=== PATIENT | female | born 1955 | race Caucasian/White ===

== ENCOUNTER 2017-12-10 06:44 | Emergency (ER) | payer MEDICAID ==
[2017-12-10] MEDS ORDERED: Ondansetron 4 MG/2 ML SDV IVPUSH ONE ×2 (07:16→09:07)
[2017-12-10] MEDS ORDERED: Sodium Chloride 0.9% 1,000 ML IV ONE ×2 (07:16→09:06)
[2017-12-10] MEDS ORDERED: LORazepam 2 MG/ML SDV IVPUSH ONE (07:16)
[2017-12-10] MEDS ORDERED: Sodium Chloride 0.9% 10 ML Syringe FLUSH PRN ×2 (07:17→08:50)
--- NOTE | 2017-12-10 07:18 | EDM.PDOC ---
ED HPI GENERAL MEDICAL PROBLEM - General Chief Complaint: General Stated Complaint: SWEATING AND NAUSEA Time Seen by Provider: 12/10/17 07:08 Source of Information: Reports: Patient History Limitations: Reports: No Limitations - History of Present Illness INITIAL COMMENTS - FREE TEXT/NARRATIVE: 52 y/o F with vomiting. Started around 3AM. Had many episodes of vomiting overnight. Upon arrival, had an episode of vomiting with some blood in it. Prior episodes of vomiting did not contain blood. Had 1 episode of diarrhea this morning, nonbloody/no melena. Tyler fine last night. No clear provoking factor. Also has diffuse abdominal discomfort. States it is "discomfort" not pain. No provoking/relieving factors. Currently unable to tolerate PO fluids. No chest pain/SOB. No urinary symptoms. No ill contacts. No known exposure to contaminated food or water. Abdominal Pain Score (Numeric/FACES): 1 - Related Data Allergies Allergy/AdvReac Type Severity Reaction Status Date / Time No Known Allergies Allergy Verified 12/10/17 07:01 Home Meds: Home Meds Lisinopril 10 mg PO DAILY 05/11/16 [History] Ondansetron [Zofran ODT] 4 mg PO Q6H PRN #20 tab.dis 05/11/16 [Rx] Ranitidine [Zantac] 150 mg PO DAILY 05/11/16 [History] ALPRAZolam [Xanax] 0.5 mg PO DAILY 12/10/17 [History] Ondansetron [Ondansetron ODT] 8 mg PO Q6HR PRN #20 tab.rapdis 12/10/17 [Rx] Pantoprazole [ProTONIX] 40 mg PO DAILY #30 tab.cr 12/10/17 [Rx] Past Medical History Cardiovascular History: Reports: Hypertension Gastrointestinal History: Reports: GERD Musculoskeletal History: Reports: Osteoarthritis Psychiatric History: Reports: Anxiety - Past Surgical History HEENT Surgical History: Reports: Oral Surgery GI Surgical History: Reports: Cholecystectomy, Hernia Repair/Other Female Surgical History: Reports: D&C, Tubal Ligation Musculoskeletal Surgical History: Reports: Shoulder Surgery Social & Family History - Family History Family Medical History: Noncontributory - Tobacco Use Smoking Status *Q: Never Smoker Years of Tobacco use: 40 Packs/Tins Daily: 0.1 Second Hand Smoke Exposure: No - Caffeine Use Caffeine Use: Reports: None - Alcohol Use Days Per Week of Alcohol Use: 0 - Recreational Drug Use Recreational Drug Use: Yes Drug Use in Last 12 Months: Yes Recreational Drug Type: Reports: Marijuana/Hashish Recreational Drug Use Frequency: Weekly - Living Situation & Occupation Living situation: Reports: Single, with Significant Other, with Family Occupation: Employed ED ROS GENERAL - Review of Systems Review Of Systems: See Below Constitutional: Reports: Malaise, Weakness, Fatigue. Denies: Fever HEENT: Reports: No Symptoms Respiratory: Denies: Shortness of Breath Cardiovascular: Denies: Chest Pain Endocrine: Reports: No Symptoms GI/Abdominal: Reports: Abdominal Pain, Nausea, Vomiting : Reports: No Symptoms. Denies: Dysuria Musculoskeletal: Reports: No Symptoms Skin: Reports: No Symptoms Neurological: Reports: No Symptoms Psychiatric: Reports: No Symptoms Hematologic/Lymphatic: Reports: No Symptoms ED EXAM, GENERAL - Physical Exam Exam: See Below Exam Limited By: No Limitations General Appearance: Alert, Mild Distress Eye Exam: Bilateral Eye: Normal Inspection Ears: Normal External Exam Nose: Normal Inspection Throat/Mouth: Normal Inspection, Normal Oropharynx, Normal Voice Head: Atraumatic, Normocephalic Neck: Normal Inspection, Supple Respiratory/Chest: No Respiratory Distress, Lungs Clear, Normal Breath Sounds, Chest Non-Tender Cardiovascular: Normal Peripheral Pulses, Regular Rate, Rhythm, No Edema, No Murmur GI/Abdominal: Soft, No Distention, Guarding, Tender (mild, diffuse) Back Exam: Normal Inspection Extremities: Normal Inspection Neurological: Alert, Oriented, Normal Cognition, No Motor/Sensory Deficits Psychiatric: Normal Affect, Normal Mood Skin Exam: Warm, Dry, Intact, Normal Color, No Rash Course - Vital Signs Last Recorded V/S: Last Vital Signs Temp 36.6 C 12/10/17 11:52 Pulse 113 H 12/10/17 11:52 Resp 15 12/10/17 07:46 BP 153/88 H 12/10/17 11:52 Pulse Ox 98 12/10/17 11:52 - Orders/Labs/Meds Orders: Active Orders 24 hr Category Date Time Status EKG 12 Lead [EKG Documentation Completion] [RC] STAT Care 12/10/17 07:17 Active Peripheral IV Care [RC] . DIRECTED Care 12/10/17 07:17 Active Abdomen Series w Chest 1V [CR] Stat Exams 12/10/17 07:20 Taken UA W/MICROSCOPIC [URIN] Stat Lab 12/10/17 09:21 Ordered Peripheral IV Insertion Adult [OM.PC] Routine Oth 12/10/17 07:17 Ordered Labs: Laboratory Tests 12/10/17 12/10/17 12/10/17 Range/Units 06:57 06:57 09:21 WBC 15.49 H (3.98-10.04) K/mm3 RBC 5.33 H (3.98-5.22) M/mm3 Hgb 15.0 (11.2-15.7) gm/L Hct 43.8 (34.1-44.9) % MCV 82.2 (79.4-94.8) fl MCH 28.1 (25.6-32.2) pg MCHC 34.2 (32.2-35.5) g/dl RDW Std Deviation 39.0 (36.4-46.3) fL Plt Count 430 H (182-369) K/mm3 MPV 8.9 L (9.4-12.3) fl Neut % (Auto) 78.0 H (34.0-71.1) % Lymph % (Auto) 13.9 L (19.3-51.7) % Eaton % (Auto) 6.4 (4.7-12.5) % Eos % (Auto) 1.0 (0.7-5.8) Baso % (Auto) 0.4 (0.1-1.2) % Neut # (Auto) 12.09 H (1.56-6.13) K/mm3 Lymph # (Auto) 2.15 (1.18-3.74) K/mm3 [place]aton # (Auto) 0.99 H (0.24-0.36) K/mm3 Eos # (Auto) 0.16 (0.04-0.36) K/mm3 Baso # (Auto) 0.06 (0.01-0.08) K/mm3 Sodium 140 (136-145) mEq/L Potassium 3.5 (3.5-5.1) mEq/L Chloride 104 (98-107) mEq/L Carbon Dioxide 22 (21-32) mEq/L Anion Gap 17.5 H (5-15) BUN 10 (7-18) mg/dL Creatinine 0.9 (0.55-1.02) mg/dL Est Cr Clr Drug Dosing 48.91 mL/min Estimated GFR (MDRD) > 60 (>60) mL/min BUN/Creatinine Ratio 11.1 L (14-18) Glucose 186 H (80-115) mg/dL Calcium 9.7 (8.5-10.1) mg/dL Magnesium 2.2 (1.8-2.4) mg/dl Total Bilirubin 0.7 (0.2-1.0) mg/dL AST 11 L (15-37) U/L ALT 23 (14-59) U/L Alkaline Phosphatase 66 (46-116) U/L Troponin I < 0.017 (0.00-0.056) ng/mL Total Protein 8.3 H (6.4-8.2) g/dl Albumin 4.4 (3.4-5.0) g/dl Globulin 3.9 gm/dL Albumin/Globulin Ratio 1.1 (1-2) Lipase 120 (73-393) U/L Urine Color Yellow (Yellow) Urine Appearance Clear (Clear) Urine pH 7.0 (5.0-8.0) Ur Specific Rock 1.025 (1.005-1.030) Urine Protein Negative (Negative) Urine Glucose (UA) Trace H (Negative) Urine Ketones 1+ H (Negative) Urine Occult Blood 2+ H (Negative) Urine Nitrite Negative (Negative) Urine Bilirubin Negative (Negative) Urine Urobilinogen 0.2 (0.2-1.0) Ur Leukocyte Esterase Negative (Negative) Urine RBC 5-10 H (0-5) /hpf Urine WBC 0-5 (0-5) /hpf Ur Epithelial Cells 0-5 (0-5) /hpf Urine Bacteria Few (FEW) /hpf Hyaline Casts 0-5 (0-5) /lpf Urine Mucus Few (FEW) /hpf Meds: Medications Discontinued Medications Generic Name Dose Route Start Last Admin Trade Name Freq PRN Reason Stop Dose Admin Diatrizoate Meglum/Diatrizoate Sod 120 ml 12/10/17 08:50 12/10/17 09:27 Gastrografin 37% PO 12/10/17 08:51 90 ml ONETIME ONE Administration Sodium Chloride 1,000 mls @ 1,000 mls/hr 12/10/17 07:16 12/10/17 07:31 Normal Saline IV 12/10/17 08:15 1,000 mls/hr ONETIME ONE Administration Sodium Chloride Confirm 12/10/17 09:01 12/10/17 09:11 Normal Saline Administered 12/10/17 09:02 Not Given Dose 1,000 mls @ as directed .ROUTE .STK-MED ONE Sodium Chloride 1,000 mls @ 999 mls/hr 12/10/17 09:06 12/10/17 09:10 Normal Saline IV 12/10/17 10:06 999 mls/hr ONETIME ONE Administration Iopamidol 100 ml 12/10/17 08:50 12/10/17 09:27 Isovue-300 (61%) IVPUSH 12/10/17 08:51 100 ml ONETIME ONE Administration Lorazepam 1 mg 12/10/17 07:16 12/10/17 07:27 Ativan IVPUSH 12/10/17 07:17 1 mg ONETIME ONE Administration Metoclopramide HCl 10 mg 12/10/17 09:15 12/10/17 09:23 Reglan IVPUSH 12/10/17 09:16 10 mg ONETIME ONE Administration Ondansetron HCl 4 mg 12/10/17 07:16 12/10/17 07:28 Zofran IVPUSH 12/10/17 07:17 4 mg ONETIME ONE Administration Ondansetron HCl 4 mg 12/10/17 09:07 12/10/17 09:08 Zofran IVPUSH 12/10/17 09:08 4 mg ONETIME ONE Administration Ondansetron HCl Confirm 12/10/17 09:08 12/10/17 09:12 Zofran Administered 12/10/17 09:09 Not Given Dose 4 mg .ROUTE .STK-MED ONE Pantoprazole Sodium 40 mg 12/10/17 07:36 12/10/17 08:18 Protonix Iv IVPUSH 12/10/17 07:37 40 mg ONETIME ONE Administration Sodium Chloride 10 ml 12/10/17 07:17 12/10/17 07:27 Saline Flush FLUSH 10 ml ASDIRECTED PRN Administration Keep Vein Open Sodium Chloride 10 ml 12/10/17 08:50 12/10/17 09:27 Saline Flush FLUSH 10 ml ONETIME PRN Administration IV FLUSH - Re-Assessments/Exams Free Text/Narrative Re-Assessment/Exam: 12/10/17 12:46 Vomited after oral contrast, no blood in the vomit. She did report feeling better after zofran, reglan, and IV fluids. She did have small amount of blood in vomit upon arrival, which did not continue with repeated episodes in the ED. She may have a gastric ulcer or esophageal irrigation/minor tearing related to vomiting. She doesn't take blood thinners. She has a normal HCT. Labs otherwise unremarkable. She is feeling better. I offered admission for ongoing symptom control and possible EGD if needed. She much prefers to be discharged. Given this preference, will dc home with strict return precautions for any further hematemesis, worsening abdominal pain, or other concern. CT a/p showed a 6.3 cm left pelvic cyst, otherwise unremarkable. I discussed this finding with the patient and suggested she f/u with PCP to arrange for the ultrasound. Discussed ED return precautions. Will rx zofran and pantoprazole. Departure - Departure Time of Disposition: 11:34 Disposition: Home, Self-Care 01 Clinical Impression: Vomiting Qualifiers: Vomiting type: unspecified Vomiting Intractability: non-intractable Nausea presence: with nausea Qualified Code(s): R11.2 - Nausea with vomiting, unspecified - Discharge Information Prescriptions: Ondansetron [Ondansetron ODT] 8 mg PO Q6HR PRN #20 tab.rapdis PRN Reason: Nausea Pantoprazole [ProTONIX] 40 mg PO DAILY #30 tab.cr Instructions: Nausea and Vomiting, Adult, [id number] Referrals: Maria Elena Hunt MD [Primary Care Provider] - Forms: ED Department Discharge Additional Instructions: 1. Take ondansetron as prescribed for vomiting 2. Take pantoprazole daily as prescribed to reduce stomach acid 3. Clear liquid diet today. You may advance diet to include bland foods once you feel better. 4. Follow up with your primary doctor as soon as possible for further care, including: - referral for upper endoscopy to check your esophagus and stomach - referral for ultrasound of your left pelvis. Your CT scan today shows a 6.3 cm cyst in your L pelvis which our radiologist suggests should be followed up with an ultrasound. 5. Return to the Emergency Department if you have worsening nausea, vomiting, abdominal pain, or other concerning symptoms. - My Orders Last 24 Hours: My Active Orders 12/10/17 07:17 EKG 12 Lead [EKG Documentation Completion] [RC] STAT Peripheral IV Care [RC] . DIRECTED Peripheral IV Insertion Adult [OM.PC] Routine 12/10/17 07:20 Abdomen Series w Chest 1V [CR] Stat 12/10/17 09:21 UA W/MICROSCOPIC [URIN] Stat - Assessment/Plan Last 24 Hours: My Active Orders 12/10/17 07:17 EKG 12 Lead [EKG Documentation Completion] [RC] STAT Peripheral IV Care [RC] . DIRECTED Peripheral IV Insertion Adult [OM.PC] Routine 12/10/17 07:20 Abdomen Series w Chest 1V [CR] Stat 12/10/17 09:21 UA W/MICROSCOPIC [URIN] Stat
[2017-12-10] MEDS ORDERED: Pantoprazole 40 MG Vial IVPUSH ONE (07:36)
[2017-12-10] MEDS ORDERED: Iopamidol 612 MG/ML 100 ML Bottle IVPUSH ONE (08:50)
[2017-12-10] MEDS ORDERED: Diatrizoate Meglumine/Diatrizoate Sodium 37% 120 ML Bottle PO ONE (08:50)
[2017-12-10] MEDS ORDERED: Sodium Chloride 0.9% 1,000 ML ONE (09:01)
[2017-12-10] MEDS ORDERED: Ondansetron 4 MG/2 ML SDV ONE (09:08)
[2017-12-10] MEDS ORDERED: Metoclopramide 10 MG/2 ML SDV IVPUSH ONE (09:15)
--- NOTE | 2017-12-10 10:48 | CT ---
CT abdomen and pelvis Technique: Multiple axial sections were obtained from above the dome of the diaphragm inferiorly through the pubic symphysis. Intravenous contrast was utilized. Some oral contrast is also seen. Delayed images were obtained through the bladder. Comparison: Prior abdominal and pelvic CT study of 1512. Findings: Visualized lung bases shows nothing acute. Small low density abnormality is noted within the right lobe of the liver which is nonspecific regarding Hounsfield unit measurements and measures 6 mm in size and statistically is most likely a small cyst. Low density is noted next to the ligamentum teres fissure which is felt compatible with an incidental area of fat. Liver is otherwise unremarkable. Spleen appears within normal limits. Adrenal glands on both sides appears nodular which is similar to prior CT exam. Surgical clips seen from prior cholecystectomy. Pancreas is within normal limits. Fatty containing lesion is seen within the left kidney which is felt to be benign and measures about 1.0 cm. Small abnormality noted within the right kidney which is also nonspecific regarding Hounsfield unit measurements and measures 3.5 mm which statistically is likely incidental. Aorta shows no aneurysmal dilatation with no retroperitoneal adenopathy. Appendix felt to be visualized and is normal. Diverticuli noted within the transverse, descending and sigmoid colon without inflammatory change of diverticulitis. Cystic lesion is seen within the left pelvis measuring about 6.3 cm in size which is an interval change from prior CT exam. Calcified uterine fibroid is identified within the uterus measuring 4.4 cm in size which has increased from prior study at which time it measured 4.2 cm. No additional pelvic abnormality is seen. Delayed images shows contrast within the distal ureters and bladder. Bone window settings were reviewed showing scattered degenerative change within the spine. Impression: 1. 6.3 cm cyst within the left side of the pelvis. Pelvic ultrasound recommended to further evaluate. 2. Slight increasing size of calcified uterine fibroid which is incidental. 3. Other incidental findings as noted above. Diagnostic code #9
[2017-12-10 12:00] VITALS: BP 153/88
--- NOTE | 2017-12-11 09:37 | CR ---
Abdominal series: Supine and upright views of the abdomen were obtained as well as frontal view of the chest. Comparison: Prior abdominal series of 05/11/16. Heart size and mediastinum are normal. Lungs are clear. Mild scoliosis is present. Calcified uterine fibroid is seen within the pelvis. Surgical clips are seen from prior cholecystectomy. No free air is seen. Bowel gas pattern is within normal limits. Impression: 1. Incidental findings. Nothing acute is seen. Diagnostic code #2
== END 2017-12-10 11:52 | disposition home or self-care (01) ==
LOC: JD.ED 06:44
DX: R11.2 Nausea with vomiting, unspecified (principal); I10 Essential (primary) hypertension; F41.9 Anxiety disorder, unspecified; K21.9 Gastro-esophageal reflux disease without esophagitis; M19.90 Unspecified osteoarthritis, unspecified site; Z79.899 Other long term (current) drug therapy
CPT/HCPCS: 36415; 74022; 74177; 80053; 81001; 83690; 83735; 84484; 85025; 93005; 96361; 96374; 96375; 96376; 99285; C9113; J2060; J2405; J2765; J7040; J7050; Q9963; Q9967; 99284

== ENCOUNTER 2019-04-15 02:38 | Emergency (ER) | payer MEDICAID ==
[2019-04-15 02:47] VITALS: BP 189/114; PULSE 81
--- NOTE | 2019-04-15 02:56 | EDM.PDOC ---
ED HPI GENERAL MEDICAL PROBLEM - General Chief Complaint: Cardiovascular Problem Stated Complaint: HIGH BP/HEADACHE Time Seen by Provider: 04/15/19 02:49 - History of Present Illness INITIAL COMMENTS - FREE TEXT/NARRATIVE: 63-year-old female presents emergency room with headache and elevated blood pressure. Patient has had ongoing headache for the last several days. She's been followed up closely this week with elevated blood pressure in the clinic. In the past she has taken what sounds like lisinopril 10 HCTZ, however stopped it 6 months ago due to low blood pressure. She has developed a headache over last several days. And just prior to arrival here developed some nausea and vomiting. She has not had any chest pain or chest pressure no breathing difficulties or shortness of breath. She has not noticed any change in vision or other neurologic symptoms. Patient does have a history of migraine headaches and she states back to full out like this and go on for several days have some associated nausea and vomiting. Headache Pain Score (Numeric/FACES): 8 - Related Data Allergies Allergy/AdvReac Type Severity Reaction Status Date / Time No Known Allergies Allergy Verified 04/15/19 02:45 Home Meds: Home Meds Lisinopril 10 mg PO DAILY 05/11/16 [History] Ondansetron [Zofran ODT] 4 mg PO Q6H PRN #20 tab.dis 05/11/16 [Rx] Ranitidine [Zantac] 150 mg PO DAILY 05/11/16 [History] ALPRAZolam [Xanax] 0.5 mg PO DAILY 12/10/17 [History] Ondansetron [Ondansetron ODT] 8 mg PO Q6HR PRN #20 tab.rapdis 12/10/17 [Rx] Pantoprazole [ProTONIX] 40 mg PO DAILY #30 tab.cr 12/10/17 [Rx] Lisinopril [Prinivil] 10 mg PO Q24H #30 tablet 04/15/19 [Rx] Past Medical History Cardiovascular History: Reports: Hypertension Gastrointestinal History: Reports: GERD Musculoskeletal History: Reports: Osteoarthritis Psychiatric History: Reports: Anxiety - Past Surgical History HEENT Surgical History: Reports: Oral Surgery GI Surgical History: Reports: Cholecystectomy, Hernia Repair/Other Female Surgical History: Reports: D&C, Tubal Ligation Musculoskeletal Surgical History: Reports: Shoulder Surgery Social & Family History - Family History Family Medical History: Noncontributory - Caffeine Use Caffeine Use: Reports: None - Living Situation & Occupation Living situation: Reports: Single, with Significant Other, with Family Occupation: Employed ED ROS GENERAL - Review of Systems Review Of Systems: See Below Constitutional: Reports: No Symptoms HEENT: Reports: No Symptoms Respiratory: Reports: No Symptoms Cardiovascular: Reports: No Symptoms GI/Abdominal: Reports: Nausea, Vomiting. Denies: Abdominal Pain, Constipation, Diarrhea : Reports: No Symptoms Musculoskeletal: Reports: No Symptoms Skin: Reports: No Symptoms Neurological: Reports: Headache Psychiatric: Reports: No Symptoms Hematologic/Lymphatic: Reports: No Symptoms Immunologic: Reports: No Symptoms ED EXAM, GENERAL - Physical Exam Exam: See Below Exam Limited By: No Limitations General Appearance: Mild Distress (From the nausea and vomiting) Eye Exam: Bilateral Eye: Normal Fundi, Normal Inspection, PERRL Ears: Normal External Exam, Normal Canal, Hearing Grossly Normal, Normal TMs Nose: Normal Inspection, Normal Mucosa, No Blood Throat/Mouth: Normal Lips, Normal Oropharynx, Normal Voice, No Airway Compromise Head: Atraumatic, Normocephalic Neck: Normal Inspection, Supple, Non-Tender. No: Tender Lateral, Tender Midline Respiratory/Chest: No Respiratory Distress, Lungs Clear, Normal Breath Sounds Cardiovascular: Regular Rate, Rhythm, No Edema, No Murmur GI/Abdominal: Normal Bowel Sounds, Soft, Non-Tender Back Exam: Normal Inspection. No: CVA Tenderness (L), CVA Tenderness (R), Vertebral Tenderness Extremities: Normal Inspection, Non-Tender, No Pedal Edema Neurological: Alert, Oriented, CN II-XII Intact, Normal Cognition, No Motor/ Sensory Deficits Skin Exam: Other (She was initially diaphoretic upon arrival but this has improved) EKG INTERPRETATION EKG Date: 04/15/19 Rhythm: NSR Green[place]: Normal P-Wave: Present QRS: Normal ST-T: Normal QT: Normal Comparison: No Change EKG Interpretation Comments: Normal Course - Vital Signs Last Recorded V/S: Last Vital Signs Temp 35.8 C 04/15/19 02:46 Pulse 81 04/15/19 02:46 Resp 18 04/15/19 02:46 BP 189/114 H 04/15/19 02:46 Pulse Ox 98 04/15/19 02:46 - Orders/Labs/Meds Orders: Active Orders 24 hr Category Date Time Status EKG Documentation Completion [RC] STAT Care 04/15/19 02:54 Active Chest 1V Frontal [CR] Stat Exams 04/15/19 03:01 Taken Head wo Cont [CT] Stat Exams 04/15/19 03:26 Taken Labs: Laboratory Tests 04/15/19 04/15/19 04/15/19 Range/Units 03:02 03:02 03:02 WBC 8.41 (3.98-10.04) K/mm3 RBC 4.98 (3.98-5.22) M/mm3 Hgb 14.1 (11.2-15.7) gm/L Hct 40.9 (34.1-44.9) % MCV 82.1 (79.4-94.8) fl MCH 28.3 (25.6-32.2) pg MCHC 34.5 (32.2-35.5) g/dl RDW Std Deviation 39.4 (36.4-46.3) fL Plt Count 348 (182-369) K/mm3 MPV 8.2 L (9.4-12.3) fl Neutrophils % (Manual) 55 (40-60) % Band Neutrophils % 0 (0-10) % Lymphocytes % (Manual) 40 (20-40) % Atypical Lymphs % 0 % Monocytes % (Manual) 4 (2-10) % Eosinophils % (Manual) 1 (0.7-5.8) % Basophils % (Manual) 0 L (0.1-1.2) Platelet Estimate Adequate Plt Morphology Comment Normal RBC Morph Comment Normal PT 10.6 (9.7-12.0) SECONDS INR 0.97 APTT 23 (22-31) SECONDS Sodium 140 (136-145) mEq/L Potassium 3.4 L (3.5-5.1) mEq/L Chloride 104 (98-107) mEq/L Carbon Dioxide 22 (21-32) mEq/L Anion Gap 17.4 H (5-15) BUN 14 (7-18) mg/dL Creatinine 0.9 (0.55-1.02) mg/dL Est Cr Clr Drug Dosing 48.28 mL/min Estimated GFR (MDRD) > 60 (>60) mL/min BUN/Creatinine Ratio 15.6 (14-18) Glucose 174 H (80-115) mg/dL Calcium 9.9 (8.5-10.1) mg/dL Total Bilirubin 0.8 (0.2-1.0) mg/dL AST 14 L (15-37) U/L ALT 21 (14-59) U/L Alkaline Phosphatase 63 (46-116) U/L Troponin I < 0.017 (0.00-0.056) ng/mL Total Protein 8.0 (6.4-8.2) g/dl Albumin 4.6 (3.4-5.0) g/dl Globulin 3.4 gm/dL Albumin/Globulin Ratio 1.4 (1-2) Meds: Medications Discontinued Medications Generic Name Dose Route Start Last Admin Trade Name Freq PRN Reason Stop Dose Admin Diphenhydramine HCl 25 mg 04/15/19 03:50 04/15/19 04:02 Benadryl IVPUSH 04/15/19 03:51 25 mg ONETIME ONE Administration Hydralazine HCl 10 mg 04/15/19 03:50 04/15/19 04:02 Apresoline IVPUSH 04/15/19 03:51 10 mg ONETIME ONE Administration Lorazepam 0.5 mg 04/15/19 06:04 04/15/19 06:09 Ativan IVPUSH 04/15/19 06:05 0.5 mg ONETIME ONE Administration Metoclopramide HCl 5 mg 04/15/19 05:08 04/15/19 05:14 Reglan IVPUSH 04/15/19 05:09 5 mg ONETIME ONE Administration Ondansetron HCl 4 mg 04/15/19 03:01 04/15/19 03:07 Zofran IVPUSH 04/15/19 03:02 4 mg ONETIME ONE Administration Ondansetron HCl 4 mg 04/15/19 03:25 04/15/19 03:32 Zofran IVPUSH 04/15/19 03:26 4 mg ONETIME ONE Administration - Re-Assessments/Exams Free Text/Narrative Re-Assessment/Exam: 04/15/19 03:52 Patient has not had much luck with Zofran 4 mg IV 2 she looks better and seems to be vomiting less however she's upset that she is still nauseated. With her blood pressure will go ahead and give her 10 mg of hydralazine. With her history of migraines give 25 mg of Benadryl see if it helps head CT has been done per my interpretation shows no acute changes 04/15/19 04:31 Blood pressures responded to the hydralazine 179/87 patient still has some problems with nausea and vomiting offered to give her something different such as 5 mg of Reglan and the patient refused. We'll continue to observe her blood pressure. 04/15/19 05:07 Patient's blood pressure is 163/106 we'll continue to watch. Patient now willing to try something different for the nausea and vomiting 06:04 She is still having some nausea and vomiting the Reglan seemed to help a little blood pressure is much better not ideal we'll try Ativan 0.5mg. 04/15/19 06:36 Patient doing much better and resting well discussed admission and this is adamantly declined. At this point we'll restart her on the lisinopril 10 mg daily with close follow-up in the clinic. Departure - Departure Time of Disposition: 06:37 Disposition: Home, Self-Care 01 Clinical Impression: Hypertensive urgency Prescriptions: Lisinopril [Prinivil] 10 mg PO Q24H #30 tablet Referrals: Maria Elena Hunt MD [Primary Care Provider] - Forms: ED Department Discharge Additional Instructions: Return to the emergency room with any questions problems worsening symptoms. Follow-up with Dr. Hunt on for recheck. Restart lisinopril 10 mg daily - My Orders Last 24 Hours: My Active Orders 04/15/19 02:54 EKG Documentation Completion [RC] STAT 04/15/19 03:01 Chest 1V Frontal [CR] Stat 04/15/19 03:26 Head wo Cont [CT] Stat - Assessment/Plan Last 24 Hours: My Active Orders 04/15/19 02:54 EKG Documentation Completion [RC] STAT 04/15/19 03:01 Chest 1V Frontal [CR] Stat 04/15/19 03:26 Head wo Cont [CT] Stat
[2019-04-15] MEDS: Ondansetron 4 MG/2 ML SDV IVPUSH ONE ×2 (03:07→03:32)
[2019-04-15] MEDS: diphenhydrAMINE 50 MG/ML SDV IVPUSH ONE (04:02)
[2019-04-15] MEDS: hydrALAZINE 20 MG/ML SDV IVPUSH ONE (04:02)
[2019-04-15] MEDS: Metoclopramide 10 MG/2 ML SDV IVPUSH ONE (05:14)
[2019-04-15] MEDS: LORazepam 2 MG/ML SDV IVPUSH ONE (06:09)
== END 2019-04-15 06:50 | disposition home or self-care (01) ==
LOC: JD.ED 02:38
DX: I16.0 Hypertensive urgency (principal); I10 Essential (primary) hypertension; K21.9 Gastro-esophageal reflux disease without esophagitis; F41.9 Anxiety disorder, unspecified; M19.90 Unspecified osteoarthritis, unspecified site; Z98.890 Other specified postprocedural states; Z90.49 Acquired absence of other specified parts of digestive tract; Z98.51 Tubal ligation status; Z79.899 Other long term (current) drug therapy
CPT/HCPCS: 36415; 70450; 71045; 80053; 84484; 85007; 85027; 85610; 85730; 93005; 93010; 96374; 96375; 99284; 99284-25; J0360; J1200; J2060; J2405; J2765

== ENCOUNTER 2020-09-02 12:26 | Emergency (ER) | payer MEDICARE, MEDICAID ==
[2020-09-02] MEDS ORDERED: Ondansetron 4 MG Tab.DIS PO ONE (13:03)
[2020-09-02] MEDS ORDERED: Sodium Chloride 0.9% 1,000 ML IV ONE (13:14)
--- NOTE | 2020-09-02 13:17 | EDM.PDOC ---
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 Patient states that in April 2020 she was diagnosed with stage IV pancreatic and liver cancer. She notes that she has been having abdominal pain chronically however the day before yesterday, she had quite a bit of pain but yesterday was pretty good. She notes that her oncologist, Dr. Francisco has been changing her pain medications around, she is to be taking more morphine than she normally had been, last dose was prior to coming to the ER. She notes the last time they changed her pain meds around she became somewhat ill with nausea. She does state however she had some dark brown emesis yesterday, that was concerning. 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 Patient notes that the pain has not changed in nature. She does have 4 mg tablets of Zofran at home however she was wondering if she could take more on a regular basis. She is denying any fevers or chills, cough or shortness of breath, or diarrhea. Upper Abdomen Pain Score (Numeric/FACES): 8 - Related Data Allergies Allergy/AdvReac Type Severity Reaction Status Date / Time No Known Allergies Allergy Verified 09/02/20 12:49 Home Meds: Home Meds Ondansetron [Zofran ODT] 4 mg PO Q6H PRN #20 tab.dis 05/11/16 [Rx] ALPRAZolam [Xanax] 0.5 mg PO BID 12/10/17 [History] Pantoprazole [ProTONIX] 40 mg PO DAILY #30 tab.cr 12/10/17 [Rx] Hydrocodone/Acetaminophen [Hydrocodone-Acetamin 7.5-325] 7.5 - 325 mg PO Q6H PRN 09/02/20 [History] Morphine [MS Contin] 15 mg PO PCLUNCH PRN 09/02/20 [History] Morphine [MS Contin] 30 mg PO BID 09/02/20 [History] Ondansetron [Zofran Odt] 8 mg PO Q6H PRN #20 tab.rapdis 09/02/20 [Rx] lisinopriL [Prinivil] 20 mg PO Q24H 09/02/20 [History] Past Medical History Cardiovascular History: Reports: Hypertension Respiratory History: Reports: Bronchitis, Recurrent, Pneumonia, Recurrent Gastrointestinal History: Reports: GERD 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 GI Surgical History: Reports: Cholecystectomy, Hernia Repair/Other Other GI Surgeries/Procedures: hernia repair february 22, 2016 Female Surgical History: Reports: D&C, Hysterectomy, Tubal Ligation Musculoskeletal Surgical History: Reports: Shoulder Surgery Social & Family History - Family History Family Medical History: No Pertinent Family History - Tobacco Use Tobacco Use Status *Q: Former Tobacco User Used Tobacco, but Quit: No - Caffeine Use Caffeine Use: Reports: None - Recreational Drug Use Recreational Drug Type: Reports: Marijuana/Hashish - Living Situation & Occupation Living situation: Reports: Single, with Significant Other, with Family Occupation: Employed ED ROS GENERAL - Review of Systems Review Of Systems: Comprehensive ROS is negative, except as noted in HPI. ED EXAM, GI/ABD - Physical Exam Exam: See Below Exam Limited By: No Limitations General Appearance: Alert, WD/WN, No Apparent Distress Respiratory/Chest: No Respiratory Distress, Lungs Clear, Normal Breath Sounds, No Accessory Muscle Use, Chest Non-Tender Cardiovascular: Normal Peripheral Pulses, Regular Rate, Rhythm, No Edema GI/Abdominal Exam: Normal Bowel Sounds, Soft, No Distention, No Mass, Tender (upper abdomen mainly) Extremities: Normal Inspection, Normal Capillary Refill Neurological: Alert, Oriented, Normal Cognition, No Motor/Sensory Deficits Psychiatric: Normal Affect, Normal Mood Skin Exam: Warm, Dry, Intact, Normal Color, No Rash Course - Vital Signs Last Recorded V/S: Last Vital Signs Temp 96.9 F 09/02/20 12:35 Pulse 98 01/29/21 12:35 Resp 16 09/02/20 12:35 BP 114/78 09/02/20 12:35 Pulse Ox 100 09/02/20 12:35 - Orders/Labs/Meds Labs: Laboratory Tests 09/02/20 09/02/20 Range/Units 13:20 13:20 WBC 14.31 H (3.98-10.04) K/mm3 RBC 4.59 (3.98-5.22) M/mm3 Hgb 12.0 (11.2-15.7) gm/dl Hct 36.3 (34.1-44.9) % MCV 79.1 L D (79.4-94.8) fl MCH 26.1 (25.6-32.2) pg MCHC 33.1 (32.2-35.5) g/dl RDW Std Deviation 37.8 (36.4-46.3) fL Plt Count 407 H (182-369) K/mm3 MPV 7.7 L (9.4-12.3) fl Neut % (Auto) 77.5 H (34.0-71.1) % Lymph % (Auto) 9.9 L (19.3-51.7) % Sch[facility] % (Auto) 11.3 (4.7-12.5) % Eos % (Auto) 0.9 (0.7-5.8) Baso % (Auto) 0.1 (0.1-1.2) % Neut # (Auto) 11.09 H (1.56-6.13) K/mm3 Lymph # (Auto) 1.41 (1.18-3.74) K/mm3 Schley # (Auto) 1.62 H (0.24-0.36) K/mm3 Eos # (Auto) 0.13 (0.04-0.36) K/mm3 Baso # (Auto) 0.02 (0.01-0.08) K/mm3 Sodium 134 L (136-145) mEq/L Potassium 3.3 L (3.5-5.1) mEq/L Chloride 94 L (98-107) mEq/L Carbon Dioxide 30 (21-32) mEq/L Anion Gap 13.3 (5-15) BUN 14 (7-18) mg/dL Creatinine 1.0 (0.55-1.02) mg/dL Est Cr Clr Drug Dosing 42.32 mL/min Estimated GFR (MDRD) 56 (>60) mL/min BUN/Creatinine Ratio 14.0 (14-18) Glucose 127 H (80-115) mg/dL Calcium 9.5 (8.5-10.1) mg/dL Magnesium 2.2 (1.8-2.4) mg/dl Total Bilirubin 0.4 (0.2-1.0) mg/dL AST 13 L (15-37) U/L ALT 14 (14-59) U/L Alkaline Phosphatase 76 (46-116) U/L Total Protein 7.3 (6.4-8.2) g/dl Albumin 3.4 (3.4-5.0) g/dl Globulin 3.9 gm/dL Albumin/Globulin Ratio 0.9 L (1-2) Meds: Medications Discontinued Medications Generic Name Dose Route Start Last Admin Trade Name Freq PRN Reason Stop Dose Admin Sodium Chloride 1,000 mls @ 999 mls/hr 09/02/20 13:14 09/02/20 13:34 Normal Saline IV 09/02/20 14:14 Not Given ONETIME ONE Ondansetron HCl 4 mg 09/02/20 13:03 09/02/20 13:18 Zofran Odt PO 09/02/20 13:04 4 mg ONETIME ONE Administration - Re-Assessments/Exams Free Text/Narrative Re-Assessment/Exam: 09/02/20 13:16 The patient presents to the ER for the evaluation of her abdomen pain and nausea. She has not been able to keep much down for food or fluids and has subsequently had some dark-colored emesis. Plan is to check baseline labs, repeat another 4 mg p.o. Zofran as she took 4 mg prior to coming to the ER. Patient is not requesting pain management at this time. Patient is on palliative care, and midlevel provider, Joelle Crawford was worried about the possibility of a bleeding ulcer, and going into the weekend and her having a low hemoglobin. Patient did note that her hemoglobin was at a level of 11.5 on August 30, 2020. 09/02/20 13:51 Patient's labs have resulted, hemoglobin is within normal limits at 12.0, white cell count mildly elevated at 14.3 with 77% neutrophils and no bands reported. Sodium mildly low at 134, potassium mildly low at 3.3. All other values are fairly unremarkable. We will try to recommend that the patient take 8 mg of Zofran every 6 hours over the weekend, and continue this until she can be reevaluated by her provider in a week or 2. Patient notes she does have quite a few 4 mg tablets however I will give her a prescription for 8 mg tablets as well to fill. As I do not do EGDs, I cannot definitively discern whether the patient has a bleeding ulcer or not however hemoglobin is within normal limits, and there are no other emergency factors that have been identified at today's visit. It does appear the patient is already on Protonix for GERD management, she will be advised to continue this. Departure - Departure Time of Disposition: 13:53 Disposition: Home, Self-Care 01 Condition: Good Clinical Impression: Chronic upper abdominal pain Nausea and vomiting Qualifiers: Vomiting type: unspecified Vomiting Intractability: non-intractable Qualified Code(s): R11.2 - Nausea with vomiting, unspecified - Discharge Information *PRESCRIPTION DRUG MONITORING PROGRAM REVIEWED*: No *COPY OF PRESCRIPTION DRUG MONITORING REPORT IN PATIENT CARMEL: No Instructions: Nausea and Vomiting, Adult, [id number] Referrals: Boni Francisco MD [Primary Care Provider] - Forms: ED Department Discharge Additional Instructions: You were evaluated in the ER today for your nausea/vomiting, and upper abdomen pain. Laboratory evaluation done at today's visit demonstrates that your hemoglobin level is within normal limits at 12.0, your potassium was mildly low at 3.3, and sodium level was mildly low at 134, however dietary intake can be supplemented to correct this abnormality. You were given a prescription for Zofran, 8 mg dissolvable under your tongue every 6-8 hours as needed for nausea. You did indicate that you already have 4 mg tablets, you may take 2 tablets every 6 hours as needed, until gone and then resume with the full 8 mg tablets. Please take all your other pain medications as previously prescribed. If your nausea persists, you may want to try to stick to a clear liquid diet, liquids such as Gatorade/Powerade/Pedialyte, or protein shakes would be sufficient during this time to keep your nutrition up. Unfortunately as this is an emergency room, to definitively diagnose you with any sort of bleeding in your stomach, and upper endoscopy or EGD would need to be performed, and this is something that general surgery has to do. Your care provider should do a referral to general surgery for an EGD if she has concerns about a bleeding ulcer. Please return to the ER at any time if symptoms change or worsen. Sepsis Event Note (ED) - Evaluation Sepsis Screening Result: No Definite Risk - Focused Exam Vital Signs: Vital Signs Temp Pulse Resp BP Pulse Ox 09/02/20 12:35 96.9 F 98 16 114/78 100
[2020-09-02 14:21] VITALS: BP 124/77; PULSE 86
== END 2020-09-02 14:15 | disposition home or self-care (01) ==
LOC: JD.ED 12:26
DX: R10.10 Upper abdominal pain, unspecified (principal); R11.2 Nausea with vomiting, unspecified; C22.8 Malignant neoplasm of liver, primary, unspecified as to type; C78.89 Secondary malignant neoplasm of other digestive organs; I10 Essential (primary) hypertension; K21.9 Gastro-esophageal reflux disease without esophagitis; Z87.891 Personal history of nicotine dependence; Z79.899 Other long term (current) drug therapy
CPT/HCPCS: 36415; 80053; 83735; 85025; 99284; A9270

== ENCOUNTER 2020-12-10 11:11 | Emergency (ER) | payer MEDICARE, MEDICAID ==
[2020-12-10] MEDS ORDERED: Sodium Chloride 0.9% 10 ML Syringe FLUSH PRN (11:52)
[2020-12-10] MEDS ORDERED: Ondansetron 4 MG/2 ML SDV IVPUSH ONE (11:52)
[2020-12-10] MEDS ORDERED: Famotidine 20 MG/2 ML SDV IVPUSH ONE (11:52)
[2020-12-10] MEDS ORDERED: Sodium Chloride 0.9% 1,000 ML IV SCH (12:00)
[2020-12-10] MEDS ORDERED: HYDROmorphone 0.5 MG/0.5 ML Syringe IVPUSH ONE ×2 (12:00→13:31)
--- NOTE | 2020-12-10 12:06 | EDM.PDOC ---
ED HPI GENERAL MEDICAL PROBLEM - General Chief Complaint: Gastrointestinal Problem Stated Complaint: CANCER PT/VOMITING BLOOD Time Seen by Provider: 12/10/20 11:24 Source of Information: Reports: Patient, Family, RN Notes Reviewed - History of Present Illness INITIAL COMMENTS - FREE TEXT/NARRATIVE: 65 yr old female with known hx of pancreatic cancer started vomiting blood around 3 AM today about 9 hours ago. 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 She has been diagnosed with pancreatic cancer about 7 to 8 months ago. Has elected not to have that treated. Is known according to daughter to have mets to her liver. She has had a lot of pain but not much prior nausea or vomiting. No current chest pain or difficulty breathing. Abdominal Pain Score (Numeric/FACES): 10 - Related Data Allergies Allergy/AdvReac Type Severity Reaction Status Date / Time No Known Allergies Allergy Verified 12/10/20 11:35 Home Meds: Home Meds ALPRAZolam [Xanax] 1 mg PO TID 12/10/17 [History] Pantoprazole [ProTONIX] 40 mg PO DAILY #30 tab.cr 12/10/17 [Rx] Ondansetron [Zofran Odt] 8 mg PO Q6H PRN #20 tab.rapdis 09/02/20 [Rx] HYDROcodone/Ibuprofen [Vicoprofen] 1 tab PO Q4HR PRN 12/10/20 [History] Morphine [Morphine 10 MG/0.5 ML Oral Syringe] 5 mcg PO Q2HR PRN 12/10/20 [History] fentaNYL [Duragesic] 75 mcg TOP ASDIRECTED 12/10/20 [History] fentaNYL [Duragesic] 100 mcg TOP ASDIRECTED 12/10/20 [History] Past Medical History Cardiovascular History: Reports: Hypertension Respiratory History: Reports: Bronchitis, Recurrent, Pneumonia, Recurrent Gastrointestinal History: Reports: 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 GI Surgical History: Reports: Cholecystectomy, Hernia Repair/Other Other GI Surgeries/Procedures: hernia repair february 22, 2016 Female Surgical History: Reports: D&C, Hysterectomy, Tubal Ligation Musculoskeletal Surgical History: Reports: Shoulder Surgery Social & Family History - Family History Family Medical History: No Pertinent Family History - Caffeine Use Caffeine Use: Reports: None - Living Situation & Occupation Living situation: Reports: Single, with Significant Other, with Family Occupation: Employed ED ROS GENERAL - Review of Systems Review Of Systems: See Below Constitutional: Denies: Fever, Chills, Diaphoresis HEENT: Reports: Other (mouth feels very dry) Respiratory: Denies: Shortness of Breath, Pleuritic Chest Pain Cardiovascular: Denies: Chest Pain GI/Abdominal: Reports: Abdominal Pain (chronically), Hematemesis, Nausea, Vomiting Musculoskeletal: Denies: Leg Pain Skin: Reports: Pallor. Denies: Jaundice Neurological: Reports: Dizziness ED EXAM, GI/ABD - Physical Exam Exam: See Below General Appearance: Alert, Moderate Distress Eyes: Bilateral: Normal Appearance Throat/Mouth: Other (oral mucosa dry) Head: Atraumatic Neck: Supple Respiratory/Chest: No Respiratory Distress, Lungs Clear, Normal Breath Sounds Cardiovascular: Regular Rate, Rhythm GI/Abdominal Exam: Tender (upper mid abd, RUQ and mid abd). No: Guarding Back Exam: No: CVA Tenderness (L), CVA Tenderness (R) Extremities: No: Pedal Edema, Leg Pain, Increased Warmth Neurological: Alert, Oriented, No Motor/Sensory Deficits Skin Exam: Warm, Dry, Normal Color Course - Vital Signs Last Recorded V/S: Last Vital Signs Temp 97.6 F 12/10/20 13:47 Pulse 78 12/10/20 13:47 Resp 16 12/10/20 13:47 BP 156/103 H 12/10/20 13:47 Pulse Ox 98 12/10/20 13:47 - Orders/Labs/Meds Orders: Active Orders 24 hr Category Date Time Status Peripheral IV Care [RC] . DIRECTED Care 12/10/20 11:52 Active CORONAVIRUS COVID-19 SOLANGE [MOLEC] Stat Lab 12/10/20 12:12 Received RED BLOOD CELLS LP [BBK] Stat Lab 12/10/20 11:58 Results TYPE AND SCREEN [BBK] Stat Lab 12/10/20 11:58 Results Sodium Chloride 0.9% [Normal Saline] 1,000 ml Med 12/10/20 12:00 Active IV ASDIRECTED Sodium Chloride 0.9% [Saline Flush] Med 12/10/20 11:52 Active 10 ml FLUSH ASDIRECTED PRN Peripheral IV Insertion Adult [OM.PC] Stat Ot 12/10/20 11:52 Ordered Transfuse PRBC [Transfuse Red Blood Cells] [COMM] Stat Ot 12/10/20 13:47 Ordered Medication Orders Sodium Chloride (Normal Saline) 1,000 mls @ 150 mls/hr IV ASDIRECTED CAROLANN Last Infusion: 12/10/20 13:00 Dose: 75 mls/hr Documented by: Admin: 12/10/20 12:01 Dose: 150 mls/hr Documented by: ARNULFO Sodium Chloride (Sodium Chloride 0.9% 10 Ml Syringe) 10 ml FLUSH ASDIRECTED PRN PRN Reason: Keep Vein Open Last Admin: 12/10/20 12:03 Dose: 10 ml Documented by: ARNULFO Labs: Laboratory Tests 12/10/20 12/10/20 12/10/20 Range/Units 11:58 11:58 11:58 WBC 6.48 (3.98-10.04) K/mm3 RBC 2.96 L (3.98-5.22) M/mm3 Hgb 6.7 L* D (11.2-15.7) gm/dl Hct 22.4 L (34.1-44.9) % MCV 75.7 L (79.4-94.8) fl MCH 22.6 L (25.6-32.2) pg MCHC 29.9 L (32.2-35.5) g/dl RDW Std Deviation 39.3 (36.4-46.3) fL Plt Count 321 D (182-369) K/mm3 MPV 8.0 L (9.4-12.3) fl Neut % (Auto) 89.3 H (34.0-71.1) % Lymph % (Auto) 6.6 L (19.3-51.7) % [facility] % (Auto) 3.5 L (4.7-12.5) % Eos % (Auto) 0 L (0.7-5.8) Baso % (Auto) 0.3 (0.1-1.2) % Neut # (Auto) 5.78 (1.56-6.13) K/mm3 Lymph # (Auto) 0.43 L (1.18-3.74) K/mm3 [facility] # (Auto) 0.23 L (0.24-0.36) K/mm3 Eos # (Auto) 0.00 L (0.04-0.36) K/mm3 Baso # (Auto) 0.02 (0.01-0.08) K/mm3 Manual Slide Review Abnormal smear PT 12.0 (9.7-12.0) SECONDS INR 1.12 APTT (21.7-31.4) SECONDS Sodium 135 L (136-145) mEq/L Potassium 3.4 L (3.5-5.1) mEq/L Chloride 98 (98-107) mEq/L Carbon Dioxide 27 (21-32) mEq/L Anion Gap 13.4 (5-15) BUN 9 (7-18) mg/dL Creatinine 0.6 (0.55-1.02) mg/dL Est Cr Clr Drug Dosing 70.54 mL/min Estimated GFR (MDRD) > 60 (>60) mL/min BUN/Creatinine Ratio 15.0 (14-18) Glucose 142 H (80-115) mg/dL Calcium 8.2 L (8.5-10.1) mg/dL Total Bilirubin 0.3 (0.2-1.0) mg/dL AST 19 (15-37) U/L ALT 16 (14-59) U/L Alkaline Phosphatase 88 (46-116) U/L Total Protein 7.0 (6.4-8.2) g/dl Albumin 2.9 L (3.4-5.0) g/dl Globulin 4.1 gm/dL Albumin/Globulin Ratio 0.7 L (1-2) Lipase 75 (73-393) U/L Blood Type Gel Antibody Screen Crossmatch 12/10/20 12/10/20 Range/Units 11:58 11:58 WBC (3.98-10.04) K/mm3 RBC (3.98-5.22) M/mm3 Hgb (11.2-15.7) gm/dl Hct (34.1-44.9) % MCV (79.4-94.8) fl MCH (25.6-32.2) pg MCHC (32.2-35.5) g/dl RDW Std Deviation (36.4-46.3) fL Plt Count (182-369) K/mm3 MPV (9.4-12.3) fl Neut % (Auto) (34.0-71.1) % Lymph % (Auto) (19.3-51.7) % [facility] % (Auto) (4.7-12.5) % Eos % (Auto) (0.7-5.8) Baso % (Auto) (0.1-1.2) % Neut # (Auto) (1.56-6.13) K/mm3 Lymph # (Auto) (1.18-3.74) K/mm3 [facility] # (Auto) (0.24-0.36) K/mm3 Eos # (Auto) (0.04-0.36) K/mm3 Baso # (Auto) (0.01-0.08) K/mm3 Manual Slide Review PT (9.7-12.0) SECONDS INR APTT 28.3 (21.7-31.4) SECONDS Sodium (136-145) mEq/L Potassium (3.5-5.1) mEq/L Chloride (98-107) mEq/L Carbon Dioxide (21-32) mEq/L Anion Gap (5-15) BUN (7-18) mg/dL Creatinine (0.55-1.02) mg/dL Est Cr Clr Drug Dosing mL/min Estimated GFR (MDRD) (>60) mL/min BUN/Creatinine Ratio (14-18) Glucose (80-115) mg/dL Calcium (8.5-10.1) mg/dL Total Bilirubin (0.2-1.0) mg/dL AST (15-37) U/L ALT (14-59) U/L Alkaline Phosphatase (46-116) U/L Total Protein (6.4-8.2) g/dl Albumin (3.4-5.0) g/dl Globulin gm/dL Albumin/Globulin Ratio (1-2) Lipase (73-393) U/L Blood Type A POSITIVE Gel Antibody Screen Negative Crossmatch See Detail Meds: Medications Generic Name Dose Route Start Last Admin Trade Name Freq PRN Reason Stop Dose Admin Sodium Chloride 1,000 mls @ 150 mls/hr 12/10/20 12:00 12/10/20 13:00 Normal Saline IV 75 mls/hr ASDIRECTED CAROLANN Infusion Sodium Chloride 10 ml 12/10/20 11:52 12/10/20 12:03 Sodium Chloride 0.9% 10 Ml Syringe FLUSH 10 ml ASDIRECTED PRN Administration Keep Vein Open Discontinued Medications Generic Name Dose Route Start Last Admin Trade Name Freq PRN Reason Stop Dose Admin Famotidine 20 mg 12/10/20 11:52 12/10/20 12:01 Famotidine 20 Mg/2 Ml Sdv IVPUSH 12/10/20 11:53 20 mg ONETIME ONE Administration Hydromorphone HCl 0.5 mg 12/10/20 12:00 12/10/20 12:06 Hydromorphone 0.5 Mg/0.5 Ml Syringe IVPUSH 12/10/20 12:01 0.5 mg ONETIME ONE Administration Hydromorphone HCl 0.5 mg 12/10/20 13:31 12/10/20 13:41 Hydromorphone 0.5 Mg/0.5 Ml Syringe IVPUSH 12/10/20 13:32 0.5 mg ONETIME ONE Administration Metoclopramide HCl 5 mg 12/10/20 13:31 12/10/20 13:43 Metoclopramide 10 Mg/2 Ml Sdv IVPUSH 12/10/20 13:32 5 mg ONETIME ONE Administration Ondansetron HCl 4 mg 12/10/20 11:52 12/10/20 12:01 Ondansetron 4 Mg/2 Ml Sdv IVPUSH 12/10/20 11:53 4 mg ONETIME ONE Administration Pantoprazole Sodium 40 mg 12/10/20 13:17 12/10/20 13:24 Pantoprazole 40 Mg Vial IVPUSH 12/10/20 13:18 40 mg ONETIME ONE Administration - Re-Assessments/Exams Free Text/Narrative Re-Assessment/Exam: 12/10/20 14:02 Hgb. has come back at 6.7, WBC 6500, plts, 321,000. Pt 12, INR 1.12. Creat 0.6, BUN 9, bili 0.3, AST, ALT, alk phos all nl. Vitals have remained stable. We have given her dilaudid 0.5 mg IV times 2 for pain. We have given zofran 4mg IV, pepcid 20 mg IV and protonix 40 mg IV. 2 units have been type and crossed, and the first unit has been started. Consent obtained, risks/benefits of transfusion discussed with patient. Have discussed with GI provider receptionist secretary for Dr Karina Acosta, Hospitalist accepting provider. She will be transferred by ground ambulance. Departure - Departure Time of Disposition: 13:40 Disposition: DC/[facility]fer to [facility] 02 Condition: Serious Clinical Impression: UGIB (upper gastrointestinal bleed), Pancreatic cancer metastasized to liver Anemia Qualifiers: Anemia type: unspecified type Qualified Code(s): D64.9 - Anemia, unspecified - Discharge Information Referrals: Boni Francisco MD [Primary Care Provider] - Forms: ED Department Discharge Sepsis Event Note (ED) - Evaluation Sepsis Screening Result: No Definite Risk - Focused Exam Vital Signs: Vital Signs Temp Temp Pulse Resp BP Pulse Ox 12/10/20 13:47 97.6 F 78 16 156/103 H 98 12/10/20 11:28 97.8 F 80 20 148/93 H 97 - My Orders Last 24 Hours: My Active Orders 12/10/20 11:52 Peripheral IV Care [RC] . DIRECTED Sodium Chloride 0.9% [Saline Flush] 10 ml FLUSH ASDIRECTED PRN Peripheral IV Insertion Adult [OM.PC] Stat 12/10/20 11:58 RED BLOOD CELLS LP [BBK] Stat TYPE AND SCREEN [BBK] Stat 12/10/20 12:00 Sodium Chloride 0.9% [Normal Saline] 1,000 ml IV ASDIRECTED 12/10/20 12:12 CORONAVIRUS COVID-19 SOLANGE [MOLEC] Stat 12/10/20 13:47 Transfuse PRBC [Transfuse Red Blood Cells] [COMM] Stat - Assessment/Plan Last 24 Hours: My Active Orders 12/10/20 11:52 Peripheral IV Care [RC] . DIRECTED Sodium Chloride 0.9% [Saline Flush] 10 ml FLUSH ASDIRECTED PRN Peripheral IV Insertion Adult [OM.PC] Stat 12/10/20 11:58 RED BLOOD CELLS LP [BBK] Stat TYPE AND SCREEN [BBK] Stat 12/10/20 12:00 Sodium Chloride 0.9% [Normal Saline] 1,000 ml IV ASDIRECTED 12/10/20 12:12 CORONAVIRUS COVID-19 SOLANGE [MOLEC] Stat 12/10/20 13:47 Transfuse PRBC [Transfuse Red Blood Cells] [COMM] Stat
[2020-12-10] MEDS ORDERED: Pantoprazole 40 MG Vial IVPUSH ONE (13:17)
[2020-12-10] MEDS ORDERED: Metoclopramide 10 MG/2 ML SDV IVPUSH ONE (13:31)
[2020-12-10 14:56] VITALS: BP 148/88; PULSE 78
== END 2020-12-10 14:42 ==
LOC: JD.ED 11:11
DX: K92.2 Gastrointestinal hemorrhage, unspecified (principal); D64.9 Anemia, unspecified; C25.9 Malignant neoplasm of pancreas, unspecified; C78.7 Secondary malignant neoplasm of liver and intrahepatic bile duct; K21.9 Gastro-esophageal reflux disease without esophagitis; I10 Essential (primary) hypertension; Z79.899 Other long term (current) drug therapy; Z20.822 Contact with and (suspected) exposure to COVID-19
CPT/HCPCS: 36415; 36430; 80053; 83690; 85025; 85610; 85730; 86850; 86900; 86901; 86922; 96374; 96375; 96376; 99285; C9113; J1170; J2405; J2765; J3490; J7030; P9016; U0002; 99284